=== PATIENT | female | born 1975 | race Caucasian/White ===

== ENCOUNTER 2017-02-13 09:30 | Emergency (ER) | payer OTHER ==
[~2017-02-13] VITALS: Ht 172.7 cm; Wt 95.7 kg
[~2017-02-13 09:30] MED LIST: CITA40TA12 PO; PEDICHW34 PO
[2017-02-13 09:37] VITALS: TEMP 36.8; Ht 172.7 cm; Wt 95.7 kg
[2017-02-13] MEDS ORDERED: CLON0.5T3 PO (10:06)
[2017-02-13] MEDS ORDERED: FEXO1TAB49 PO (10:06)
[2017-02-13] MEDS ORDERED: SODIUM CHLORIDE 0.9% 1000ML 1,000 ML IV STA (10:09)
[2017-02-13 10:32] LABS: BASO % 0.5 %; BASO ABS # 0.03 K/uL (0-0.2); COMPLETE YES; EOS % 5.6 %; IG% 0.2 %; LYMPH % 25.4 %; LYMPH ABS # 1.44 K/uL (1.2-3.4); MEAN CELL VOLUME 87.9 fL (80-100); MEAN CORPUSCULAR HEMOGLOBIN 30.8 pg (25-34); MEAN PLATELET VOLUME 9.3 fL (7.4-10.4); MONO % 9.7 %; NEUT % 58.6 %; PLATELET COUNT 224 K/uL (130-400); RED BLOOD COUNT 4.78 M/uL (4.2-5.4); WHITE BLOOD COUNT 5.67 K/uL (4.8-10.8)
[2017-02-13 10:51] LABS: BUN/CREATININE RATIO 14.2 (10-20); CREATININE 0.66 mg/dl (0.60-1.20); POTASSIUM 4.3 mmol/L (3.5-5.1)
--- NOTE | 2017-02-13 11:10 | DIAGNOSTIC IMAGING REPORT ---
SINUSES-MAXILLOFACIAL W/O HISTORY: 41 years Female congestion COMPARISON: Head CT 09/17/2010 TECHNIQUE: Multiple axial CT images of the paranasal sinuses and maxillofacial bones were obtained without contrast. Coronal and sagittal reformatted images were obtained from the axial data set and submitted for review. A dose lowering technique was used consistent with the principles of ALARA. FINDINGS: Mastoid air cells and middle ear cavities are clear. There is mild to moderate mucosal thickening of the left maxillary sinus with mild disease within the right maxillary and bilateral sphenoid sinuses. There is moderate mucosal thickening throughout the ethmoid air cells bilaterally. Frontal sinuses are generally clear. Nasopharynx is patent. Large left and small right conchal bullosa noted. No evidence of ostiomeatal complex occlusion. The bilateral frontoethmoidal and sphenoethmoidal recesses are patent. No Nickie cell. Facial bones appear intact without acute fracture identified. Degenerative changes are present at C1-C2. No large. Vertebral cysts are seen. Soft tissues are within normal limits. Tonsilliths are seen in the left palatine tonsil the lesser extent on the right. Image intracranial structures are within normal limits. IMPRESSION: 1. Moderate left maxillary and ethmoid sinus disease without evidence of ostiomeatal occlusive pattern. No nasopharyngeal obstruction. 2. Left greater than right palatine Tonsilliths are seen without peritonsillar abscess or evidence of acute tonsillitis. 3. Bilateral she bullosa. The above report was generated using voice recognition software. It may contain grammatical, syntax or spelling errors. Electronically signed by: Jona Hearn M.D. 02/13/2017 11:09 AM Dictated Date/Time: 02/13/2017 11:02 AM
[2017-02-13] MEDS ORDERED: AMOX875T PO (11:31)
--- NOTE | 2017-02-13 11:32 | EMERGENCY ROOM VISIT NOTE ---
History Report prepared by Mandy: Brigette Fields Under the Supervision of: Dr. Tommy Prince D.O. First contact with patient: 10:02 Chief Complaint: DIZZY Stated Complaint: DIZZY Nursing Triage Summary: Pt states, "Yesterday, you know when you watch a video and everything streams, that's how it seems. It's like everything is filter. I don't lose time, it's just like there is a pause. The lights bother me. Yesterday I had bad pressure in my face, even my teeth hurt." History of Present Illness The patient is a 41 year old female who presents to the Emergency Room with complaints of persistent sinus pressure starting yesterday. She has a history of allergies. Her allergies seem worse recently. Yesterday, she was sneezing a lot more than usual. She reports sinus pressure in her face. She feels "run down ". She reports the light is hurting her eyes. She also reports a sensation that her "brain can't catch up". She describes it as pauses when watching a video. She experienced this yesterday and today at work and was told by her boss to go to the ED. She denies any nausea, cough, or headache. She has a history of panic attacks and migraines. The light sensitivity feels like a migraine without the headache. She notes that she has had more floaters in her eyes recently. Source of History: patient Onset: yesterday Position: other (sinus) Quality: pressure Timing: other (persistent) Associated Symptoms: + fatigue, No headache, No cough, No nausea Note: Pt reports sneezing, light sensitivity, brain pauses. Review of Systems See HPI for pertinent positives & negatives. A total of 10 systems reviewed and were otherwise negative. Past Medical & Surgical Medical Problems: (1) Depression Family History No pertinent family history Social History Smoking Status: Never Smoker Marital Status: Housing Status: lives with family Current/Historical Medications Scheduled Amoxicillin & Pot Clavulanate (Augmentin 875-125 mg), 875 MG PO BID Citalopram Hydrobromide (Celexa), 40 MG PO QPM Clonazepam (Klonopin), Unknown Dose PO QPM Fexofenadine Hcl (Kate Allergy), 180 MG PO DAILY Allergies Coded Allergies: NUTS (Verified Allergy, Severe, ANAPHYLAXIS, 02/13/17) Shellfish (Unverified Allergy, Severe, ANAPHYLAXIS, 02/13/17) Sulfa Antibiotics (Unverified Allergy, Intermediate, RASH, 02/13/17) Latex1 -Allergic Contact Dermititis (Verified Allergy, Mild, RASH, 02/13/17 ) ONLY AFFECTED WHEN SHE HERSELF WEARS LATEX POWDERED GLOVES. DOES NOT AVOID OTHER FORMS OF LATEX Codeine (Unverified Allergy, Unknown, RASH VOMITING, 02/13/17) Sulfa Drugs (Verified Allergy, Unknown, HIVES, 02/13/17) Physical Exam Vital Signs Date Time Temp Pulse Resp B/P (MAP) Pulse Ox O2 Delivery O2 Flow Rate FiO2 02/13/17 11:22 58 02/13/17 09:37 36.8 86 18 112/68 97 Room Air Physical Exam CONSTITUTIONAL/VITAL SIGNS: Reviewed / noted above. GENERAL: Non-toxic in appearance. INTEGUMENTARY: Warm, dry, and [place]. HEAD: Normocephalic. EYES: without scleral icterus or trauma. ENT/OROPHARYNX: Clear rhinorrhea and sniffling. LYMPHADENOPATHY/NECK: Is supple without lymphadenopathy or meningismus. RESPIRATORY: Lungs clear and equal. CARDIOVASCULAR: Regular rate and rhythm. GI/ABDOMEN: Soft and nontender. No organomegaly or pulsatile mass. No rebound or guarding. Normal bowel sounds. EXTREMITIES: Warm and well perfused. BACK: No CVA tenderness. NEUROLOGICAL: Intact without focal deficits. PSYCHIATRIC: normal affect. MUSCULOSKELETAL: Normally developed with good muscle tone. Medical Decision & Procedures ER Provider Diagnostic Interpretation: Radiology results as stated below per my review and radiologist interpretation: SINUSES-MAXILLOFACIAL W/O HISTORY: 41 years Female congestion COMPARISON: Head CT 09/17/2010 TECHNIQUE: Multiple axial CT images of the paranasal sinuses and maxillofacial bones were obtained without contrast. Coronal and sagittal reformatted images were obtained from the axial data set and submitted for review. A dose lowering technique was used consistent with the principles of ALARA. FINDINGS: Mastoid air cells and middle ear cavities are clear. There is mild to moderate mucosal thickening of the left maxillary sinus with mild disease within the right maxillary and bilateral sphenoid sinuses. There is moderate mucosal thickening throughout the ethmoid air cells bilaterally. Frontal sinuses are generally clear. Nasopharynx is patent. Large left and small right conchal bullosa noted. No evidence of ostiomeatal complex occlusion. The bilateral frontoethmoidal and sphenoethmoidal recesses are patent. No Nickie cell. Facial bones appear intact without acute fracture identified. Degenerative changes are present at C1-C2. No large. Vertebral cysts are seen. Soft tissues are within normal limits. Tonsilliths are seen in the left palatine tonsil the lesser extent on the right. Image intracranial structures are within normal limits. IMPRESSION: 1. Moderate left maxillary and ethmoid sinus disease without evidence of ostiomeatal occlusive pattern. No nasopharyngeal obstruction. 2. Left greater than right palatine Tonsilliths are seen without peritonsillar abscess or evidence of acute tonsillitis. 3. Bilateral she bullosa. The above report was generated using voice recognition software. It may contain grammatical, syntax or spelling errors. Electronically signed by: Jona Hearn M.D. 02/13/2017 11:09 AM Dictated Date/Time: 02/13/2017 11:02 AM Laboratory Results 02/13/17 10:20 Red Blood Count 4.78, Mean Corpuscular Volume 87.9, Mean Corpuscular Hemoglobin 30.8, Mean Corpuscular Hemoglobin Concent 35.0, Mean Platelet Volume 9.3, Neutrophils (%) (Auto) 58.6, Lymphocytes (%) (Auto) 25.4, Monocytes (%) (Auto) 9.7, Eosinophils (%) (Auto) 5.6, Basophils (%) (Auto) 0.5, Neutrophils # (Auto) 3.32, Lymphocytes # (Auto) 1.44, Monocytes # (Auto) 0.55, Eosinophils # (Auto) 0.32, Basophils # (Auto) 0.03 02/13/17 10:20 Test 02/13/17 10:20 White Blood Count 5.67 K/uL (4.8-10.8) Red Blood Count 4.78 M/uL (4.2-5.4) Hemoglobin 14.7 g/dL (12.0-16.0) Hematocrit 42.0 % (37-47) Mean Corpuscular Volume 87.9 fL (80-100) Mean Corpuscular Hemoglobin 30.8 pg (25-34) Mean Corpuscular Hemoglobin Concent 35.0 g/dl (32-36) Platelet Count 224 K/uL (130-400) Mean Platelet Volume 9.3 fL (7.4-10.4) Neutrophils (%) (Auto) 58.6 % Lymphocytes (%) (Auto) 25.4 % Monocytes (%) (Auto) 9.7 % Eosinophils (%) (Auto) 5.6 % Basophils (%) (Auto) 0.5 % Neutrophils # (Auto) 3.32 K/uL (1.4-6.5) Lymphocytes # (Auto) 1.44 K/uL (1.2-3.4) Monocytes # (Auto) 0.55 K/uL (0.11-0.59) Eosinophils # (Auto) 0.32 K/uL (0-0.5) Basophils # (Auto) 0.03 K/uL (0-0.2) RDW Standard Deviation 41.0 fL (36.4-46.3) RDW Coefficient of Variation 12.8 % (11.5-14.5) Immature Granulocyte % (Auto) 0.2 % Immature Granulocyte # (Auto) 0.01 K/uL (0.00-0.02) Anion Gap 3.0 mmol/L (3-11) Est Creatinine Clear Calc Drug Dose 132.9 ml/min Estimated GFR () 125.4 Estimated GFR (Non- 108.2 BUN/Creatinine Ratio 14.2 (10-20) Calcium Level 9.0 mg/dl (8.5-10.1) Laboratory results as stated above per my review. Medications Administered Medications (Trade) Dose Ordered Sig/Randall Route Start Time Stop Time Status Last Admin Dose Admin Sodium Chloride 1,000 ml @ 999 mls/hr Q1H1M STAT IV 02/13/17 10:09 02/13/17 11:09 DC 02/13/17 10:39 999 MLS/HR ED Course 1005: Previous medical records were reviewed. The patient was evaluated in room B2. A complete history and physical examination was performed. 1009: NSS 1000 ml @ 999 mls/hr IV. 1134: On reevaluation, the patient is resting comfortably. I discussed the results and findings with the patient. She verbalized agreement of the treatment plan. She was discharged home. 1145: Augmentin 875 mg PO. Medical Decision Differential includes acute coronary syndrome, myocardial infarction, CVA, TIA, anemia, infection, pneumonia, UTI, pyelonephritis, poor nutrition, dehydration, electrolyte disturbance,hypoglycemia. This is a 41-year-old female who presents to the ED with a chief complaint of having some seasonal allergies and congestion. She states that they seem to be worse than normal. She is also having some light sensitivity. She states that the symptoms are causing her to feel somewhat anxious. She was at work today and her employer told her to come in to get checked. She denies any headaches or neck stiffness. She feels a fullness in her face. She reports sneezing a lot yesterday. Her vital signs are normal. She is afebrile. Her exam was unremarkable. CT scan of the sinuses revealed maxillary and ethmoid sinusitis on the left. CBC and PRP are normal. The patient was started on Augmentin. She is felt to be stable for discharge and outpatient follow-up. She is using [id number] allergy medications as well. Medication Reconcilliation Current Medication List: was personally reviewed by me Blood Pressure Screening Patient's blood pressure: Normal blood pressure Blood pressure disposition: Did not require urgent referral Impression Primary Impression: Acute maxillary sinusitis Scribe Attestation The scribe's documentation has been prepared under my direction and personally reviewed by me in its entirety. I confirm that the note above accurately reflects all work, treatment, procedures, and medical decision making performed by me. Departure Information Dispostion Home / Self-Care Prescriptions Amoxicillin & Pot Clavulanate (Augmentin 875-125 mg) 1 Tab Tab 875 MG PO BID, #14 TAB Prov: Tommy Prince D.O. 02/13/17 Referrals Biju Reagan M.D. (PCP) Patient Instructions ED Sinusitis Abx Tx, My [facility] Additional Instructions Augmentin as prescribed. Follow-up with your doctor for further care and evaluation in 5-7 days. Return to the emergency department for worsening or new symptoms or any concerns. You have been examined and treated today on an emergency basis only. This is not a substitute for, or an effort to provide, complete comprehensive medical care. It is impossible to recognize and treat all injuries or illnesses in a single emergency department visit. It is therefore important that you follow up closely with your doctor. Call as soon as possible for an appointment.
[2017-02-13] MEDS ORDERED: AMOXICILLIN/CLAVULANATE TAB 875 MG TAB PO ONE (11:45)
[2017-02-13 11:58] VITALS: BP 123/65; PULSE 70; O2SAT 99
== END 2017-02-13 12:00 | disposition home or self-care (01) ==
LOC: C.EDB 09:30
DX: J01.00 Acute maxillary sinusitis, unspecified (principal); F32.9 Major depressive disorder, single episode, unspecified

== ENCOUNTER 2019-08-02 05:35 | Observation (INO) ==
--- NOTE | 2019-07-14 15:19 | PAT Medication Instructions ---
Medication Instructions Date of Service July 14, 2019 Home Medications clonazepam 0.5 mg PO HS PRN fexofenadine 180 mg tablet 180 mg PO QAM sertraline 100 mg tablet 100 mg PO HS DO NOT take the morning of surgery fexofenadine 180 mg tablet 180 mg PO QAM Take evening before surgery clonazepam 0.5 mg PO HS PRN (if needed) sertraline 100 mg tablet 100 mg PO HS Other Notes If you have any questions please call us at [phone] or [phone] or [phone] or [phone]
--- NOTE | 2019-07-15 12:44 | Anesthesiology Consultation ---
Date of Service July 15, 2019 Assessment & Plan (1) Encounter for pre-operative examination: - Awaiting review preop testing (labs). - Check test AM DOS - Claustrophobic: *patient anxious regarding O2 mask.* Reassurance given. Chart Review Chart Review: Patient NOT seen in Pre Admission Testing History Surgery Operation Date: 08/02/19 07:30 Proposed Procedures p Robotic Total Laparoscopic Hysterectomy - Renny Duval Jr, MD, FACOG s Cystoscopy, Mid Ureteral Sling, Possible Cystocele Repair - Bj Ravi MD Height/Weight Height: 5 ft 8 in Weight: 99 kg Allergies Allergy/AdvReac Type Severity Reaction Status Date / Time nut - unspecified Allergy Severe ANAPHYLAXIS Verified 07/15/19 11:09 shellfish derived Allergy Severe ANAPHYLAXIS Verified 07/15/19 11:09 Sulfa (Sulfonamide Allergy Intermediate RASH Verified 07/15/19 11:09 Antibiotics) latex Allergy Mild RASH Verified 07/15/19 11:09 codeine Allergy Unknown RASH Verified 07/15/19 11:09 VOMITING Medications Home Medications Medication Instructions Recorded Confirmed Last Taken clonazepam 0.5 mg PO HS PRN #0 tab 02/13/17 07/15/19 07/15/18 fexofenadine 180 mg tablet 180 mg PO QAM 05/27/19 07/15/19 Unknown sertraline 100 mg tablet 100 mg PO HS 05/27/19 07/15/19 Unknown Past Medical History Medical History Anxiety Depression History of migraine headaches Obese Exercise / Class Metabolic Activity II 4-5 Yardwork/Stairs/Walk up hill Past Family History Family History Grandmother (Maternal) Diabetes Mother , at 53 Breast cancer, Onset Age: 43 Grandfather (Maternal) Hypertension Past Surgical History Surgical History H/O arthroscopic knee surgery 1997 - left History of ectopic with D&C S/P wisdom tooth extraction Past Anesthesia History No Family Hx of Anesthesia Complications and Other *Patient reports acting "delirious" in recovery after D&C* History of PONV No Hx of PONV and No Hx of Motion Sickness Social History Smoking Status: Never smoker Do You Dip or Chew Tobacco: No Hx Alcohol Use: Yes Alcohol type: wine alcohol intake frequency: a few times a month Hx Substance Use: No substance use type: does not use Review of Systems Patient denies chest pain, shortness of breath, dyspnea on exertion, reflux, cough, wheezing, palpitations. Physical Exam Vital Signs VITALS BP 109/74 P 71 TEMP 97.8 SP02 96%RA RESP 18 PHYSICAL Full neck and c-spine range of motion. Full TMJ range of motion. TMD 4 finger breaths Mallampati Score 1 Dentition: intact, crown on molar Lungs: clear throughout to auscultation Cardiac: regular rate and rhythm, no murmurs noted Spine: normal Extremities: no edema
[2019-07-15 13:31] LABS: Basophils # (auto) 0.02 K/uL (0-0.2); Basophils % (auto) 0.3 %; Eosinophils # (auto) 0.35 K/uL (0-0.5); Eosinophils % (auto) 5.6 %; Hemoglobin 13.9 g/dL (12.0-16.0); Lymphocytes # (auto) 1.71 K/uL (1.2-3.4); Lymphocytes % (auto) 27.3 %; Mean Corpuscular Hemoglobin 29.9 pg (25-34); Mean Corpuscular Hgb Conc 33.9 g/dL (32-36); Mean Corpuscular Volume 88.2 fL (80-100); Mean Platelet Volume 9.1 fL (7.4-10.4); Monocytes # (auto) 0.44 K/uL (0.11-0.59); Neutrophils # (auto) 3.74 K/uL (1.4-6.5); Neutrophils % (auto) 59.8 %; Platelet Count 287 K/uL (130-400); RDW Coefficient of Variation 12.7 % (11.5-14.5); RDW Standard Deviation 40.9 fL (36.4-46.3); Red Blood Count 4.65 M/uL (4.2-5.4); White Blood Count 6.26 K/uL (4.8-10.8)
[2019-08-02] MEDS ORDERED: LACTATED RINGER'S 1,000 ML IV SCH ×2 (06:00→13:40)
[2019-08-02] MEDS ORDERED: LR 15ML/HR IV SCH (06:00)
[2019-08-02] MEDS ORDERED: CEFAZOLIN 3000MG 65 ML IV SCH (06:00)
[2019-08-02 06:46] LABS: Pregnancy Test, Serum Negative (Negative)
[2019-08-02] MEDS ORDERED: SCOPOLAMINE 1.5 MG TDSY ONE (06:55)
[2019-08-02] MEDS ORDERED: GLYCOPYRROLATE 0.2 MG/ML VIAL ONE (06:57)
[2019-08-02] MEDS ORDERED: DEXAMETHASONE SOD INJ 4 MG/ML VIAL ONE (06:57)
[2019-08-02] MEDS ORDERED: NEOSTIGMINE METHYLSULFATE 5 MG/5 ML SYR ONE (06:57)
[2019-08-02] MEDS ORDERED: MIDAZOLAM HCL 1 MG/ML 2ML VIAL ONE (06:57)
[2019-08-02] MEDS ORDERED: LIDOCAINE HCL 2% 2 ML VIAL/AMP(20MG/ML) INFIL ONE (06:57)
[2019-08-02] MEDS ORDERED: HYDROmorphone INJ 2 MG/ML SYR/VIAL ONE (06:57)
[2019-08-02] MEDS ORDERED: PROPOFOL IV EMULSION 10 MG/ML 20 ML VIAL IV ONE (06:57)
[2019-08-02] MEDS ORDERED: ONDANSETRON INJ 2 MG/ML 2 ML VIAL ONE (06:57)
[2019-08-02] MEDS ORDERED: fentaNYL citrate 100 MCG/2 ML VIAL ONE (06:57)
[2019-08-02] MEDS ORDERED: ROCURONIUM BROMIDE 10 MG/ML 5 ML VIAL ONE ×2 (06:57→09:10)
[2019-08-02] MEDS ORDERED: ATROPINE SULFATE 0.1 MG/ML 10ML SYR IV PRN (07:00)
[2019-08-02] MEDS ORDERED: MEPERIDINE HCL 25 MG/ML CARP IV PRN (07:00)
[2019-08-02] MEDS ORDERED: PHENYLEPHRINE 100MCG/ML 5ML SYR IV PRN (07:00)
[2019-08-02] MEDS ORDERED: ePHEDrine sulfate 50 MG/ML AMP IV PRN (07:00)
[2019-08-02] MEDS ORDERED: SCOPOLAMINE 1.5 MG TDSY TD ONE (07:00)
[2019-08-02] MEDS ORDERED: LABETALOL HCL IV 5 MG/ML 20ML IV PRN (07:00)
[2019-08-02] MEDS ORDERED: fentaNYL citrate 100 MCG/2 ML VIAL IV PRN (07:00)
[2019-08-02] MEDS ORDERED: ONDANSETRON INJ 2 MG/ML 2 ML VIAL IV PRN ×2 (07:00→13:07)
[2019-08-02] MEDS ORDERED: METHYLENE BLUE 0.5% 10 ML VIAL ONE (07:07)
[2019-08-02] MEDS ORDERED: BUPIVACAINE 0.5 % 5 MG/1 ML MPF 30ML VIAL ONE (07:07)
--- NOTE | 2019-08-02 07:07 | History & Physical Bridge Note ---
Date of Service August 02, 2019 History & Physical Bridge Note I have examined the patient, reviewed the History & Physical and in the interval since the performance of the History & Physical I have noted the following changes of clinical significance: no changes noted
[2019-08-02] MEDS ORDERED: BUPIVACAINE/EPINEPHRINE 0.5% MPF 1:200,000 10 ML VIAL ONE (08:25)
[2019-08-02] MEDS ORDERED: BACITRACIN INJ 50,000 UNIT VIAL ONE (08:25)
[2019-08-02] MEDS ORDERED: CLINDAMYCIN PHOS 2% VAG 7 APPLN/40 GM TUBE ONE (08:25)
--- NOTE | 2019-08-02 10:05 | Post Operative Brief Note ---
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 Operation Date: 08/02/19 07:15 <No data on this case meets the specified criteria> I identified the patient and participated in the time-out.: Yes Procedure Operation Date: 08/02/19 07:15 Actual Procedures p Robotic Total Laparoscopic Hysterectomy with salpingectomy, cystoscopy(Not Applicable) - Renny Duval Jr, MD, FACOG Surgeon Renny Duval Jr, MD, FACOG Truss Puller Helper Taran Estimated Blood Loss 100 Findings See Below (Multiparous uterus and normal appearing tubes/ovaries, suspected endometriosis of cul se dac involving uteral sacral ligaments, TLH with bilateral salpingectomy, postprocedure cystoscopy with bilatral ureteral jets) Specimens Specimen Description: Permanent Specimen: A: Uterus, cervix, bilateral fallopian tubes
[2019-08-02] MEDS ORDERED: ePHEDrine sulfate 50 MG/ML SYR ONE (10:31)
--- NOTE | 2019-08-02 10:59 | Operative Report ---
PG Post Operative Report Pre & Post Diagnosis Operation Date: 08/02/19 07:15 Pre-Op Diagnosis: Menorrhagia, Urinary stress Incontinence Post-Op Diagnosis: Menorrhagia, Urinary stress Incontinence I identified the patient and participated in the time-out.: Yes Procedure Operation Date: 08/02/19 07:15 Actual Procedures p Robotic Total Laparoscopic Hysterectomy with salpingectomy, cystoscopy(Not Applicable) - Renny Duval Jr, MD, FACOG s Cystoscopy; Mid-Uretheral / Pubovaginal Sling, Cystocele Repair(Not Applicable) - Bj Ravi MD Surgeon Bj Ravi MD Machine Long Goods Helper Taran BALTAZAR for sling Estimated Blood Loss 100 (100ml for hysterectomy and ml for bladder sling) Findings Consistent with Post-Op Diagnosis Specimens NA Description of Procedure Cystoscopy, midurethral sling. I attest to the content of the Intraoperative Record and any orders documented therein. Any exceptions are noted below.
[2019-08-02] MEDS ORDERED: ESMOLOL HCL INJ 10 MG/ML 10ML VIAL IV ONE (11:23)
--- NOTE | 2019-08-02 11:47 | Operative Report ---
DATE OF OPERATION: 08/02/2019 PREOPERATIVE DIAGNOSIS: Menorrhagia. POSTOPERATIVE DIAGNOSES: 1. Menorrhagia. 2. Probable posterior cul-de-sac endometriosis. PROCEDURE PERFORMED: 1. Total laparoscopic hysterectomy. 2. Bilateral salpingectomy. 3. Post-procedure cystoscopy. SURGEON: Renny Duval MD CLOTHING SUPERVISOR: Dr. Myriam Chirinos. ANESTHESIA: General. FINDINGS: Laparoscopic examination of the pelvis showed a multiparous uterus with normal appearing tubes and ovaries bilaterally. Adhesions of the sigmoid colon to the posterior surface of the uterus with vascular appearing implants consistent with endometriosis. Total laparoscopic hysterectomy with bilateral salpingectomy performed. Post-procedure cystoscopy showed bilateral ureteral jets consistent with ureteral patency. Procedure turned over to Dr. Bj Ravi from urology. PROCEDURE IN DETAIL: The patient was taken to the operating room and after general anesthesia, was placed in a dorsal lithotomy position and prepped and draped for a laparoscopic hysterectomy. Winston catheter was inserted into the bladder which remained there throughout the procedure. VCare uterine manipulator was inserted into the uterus and fastened to the cervix with 0 Vicryl suture. VCare locked into place. Small subumbilical incision was made and the Veress needle was introduced into the pelvic cavity, which was then insufflated with 3 liters of CO2. A 12 mm operative laparoscopic port was placed above the umbilicus. Pelvic organs were visualized and then under direct laparoscopic guidance, the operative reports were placed, one 8 mm port on the left, two 8 mm ports on the right and a 12 mm assistance port on the left. The robot was brought to the table and successfully docked. Pelvic organs were visualized with the description as above. Through arm #1, was placed bipolar cautery instrument through arm #2 the monopolar scissors and through arm #2 the Prograf. The surgeon left the operating table and went to the operating console. Pelvic organs and anatomy were again identified. Both ureters were seen crusting at the pelvic junction. The left fallopian tube was cauterized along the mesosalpinx and excised and sent for pathological evaluation. The left round ligament was then cauterized, opening the anterior leaf of the broad ligament. This was taken down over the level of the cervix. Uterine vessels were then skeletonized on the left hand side and cauterized in 3 contiguous rahman, but not cut. Dissection was then turned to the right fallopian tube and ovary. The right fallopian tube was isolated by cauterizing along the mesosalpinx, cut and removed from the field. Right round ligament was cauterized and cut open the anterior leaf of the broad ligament which was taken down to join the contralateral side. Dissection of the bladder below the level of the vaginal cervical junction. Uterine vessels were skeletonized on the right hand side and cauterized with the bipolar cautery scissors, these were then cut. The cardinal ligament was then cauterized and cut on the right hand side. Dissection was turned back to the left hand side. Uterine vessels were then cut and the cardinal ligament on the left hand side were cauterized and cut. Anterior colpotomy incision was made and then carried around posteriorly. The posterior cervix was dense and thickened consistent with endometriosis cutting down on to the VCare in a circumferential fashion, the cervix was from the vagina and delivered into the vaginal cavity. The bipolar cautery instrument and the monopolar scissors were removed. A ProGrasp instrument was placed through arm #1 and the elina needle driver helper through arm #2. The vaginal cuff was identified. Again, this was closed with 2-0 Vicryl V-Loc suture. The closure was done with 2 sutures starting at the angles on the left and right and brought to the midline doubling back. Suture was cut and removed from the field. Hemostasis was present. At this point, the Winston catheter was removed from the bladder and instilled with normal saline. The patient did not receive methylene blue secondary to her use of a serotonin release inhibitor. Both ureteral jets could be seen coursing into the bladder consistent with ureteral patency. No evidence of sutures into the bladder. The bladder was then drained. The cuff was inspected for hemostasis, which was present but Tisseel was applied to the vaginal cuff to ensure hemostasis. The CO2 was allowed to escape from the cavity. The robot was undocked and removed from the operative field. The laparoscopic ports were removed. The 12 mm ports fascial defects were closed with interrupted 0 Vicryl suture. The skin incisions were closed with interrupted 4-0 Monocryl sutures and all incisions were injected with 0.5% Marcaine solution. Hemostasis present. At this point, the procedure was passed off to Dr. Bj Ravi from urology for completion of a retropubic urethropexy. I attest to the content of the Intraoperative Record and any orders documented therein. Any exception s are noted below.
--- NOTE | 2019-08-02 12:10 | Anesthesiology Progress Note ---
Date of Service August 02, 2019 Anesthesia Post Procedure Vital Signs Vital Signs: Temp Pulse Pulse Resp BP BP Pulse Ox 08/02/19 11:50 37.0 C 88 13 114/74 94 08/02/19 11:40 88 14 109/75 94 08/02/19 11:30 101 H 15 118/73 94 08/02/19 11:20 106 H 14 119/78 94 08/02/19 11:12 37.1 C 112 H 21 123/78 96 08/02/19 06:02 36.8 C 84 16 125/79 94 Pain Intensity Bilateral Abdomen: Pain Intensity: 2 Transfer of Care Handoff Completed per policy Notes Mental Status: alert / awake / arousable Patient Amnestic to Procedure: Yes Nausea / Vomiting: adequately controlled Pain: adequately controlled Airway Patency, RR, SpO2: stable & adequate BP & HR: stable & adequate Hydration State: stable & adequate Anesthetic Complications: no major complications apparent and Pt Satisfied with anesthetic care
[2019-08-02] MEDS ORDERED: ACETAMINOPHEN 325 MG TAB PO PRN (13:07)
[2019-08-02] MEDS ORDERED: KETOROLAC 30 MG/ML VIAL IV PRN (13:07)
[2019-08-02] MEDS ORDERED: PROMETHAZINE HCL 12.5 MG in SODIUM CHLORIDE 0.9% 50 ML IV PRN (13:07)
[2019-08-02] MEDS ORDERED: OXYCODONE/ACETAMINOPHEN 5mg/325mg TAB PO PRN (13:07)
[2019-08-02] MEDS: IBUPROFEN 600 MG TAB PO PRN ×3 (13:37→21:21)
[2019-08-02] MEDS: OXYCODONE/ACETAMINOPHEN 5mg/325mg TAB PO PRN ×3 (14:29→21:21)
--- NOTE | 2019-08-02 14:45 | Operative Report ---
DATE OF OPERATION: 08/02/2019 PREOPERATIVE DIAGNOSIS: Stress urinary incontinence. POSTOPERATIVE DIAGNOSIS: Stress urinary incontinence. PROCEDURE: Cystoscopy, mid urethral sling placement, transobturator approach. SURGEON: Bj Ravi MD. CALL CENTER ASSOCIATE: DELANEY Ivey. Auto Tune Up Mechanic is present throughout the case for retraction, suction, division of the suture ligature material, passage of instruments, patient positioning and general patient safety. ESTIMATED BLOOD LOSS: 10 mL. DRAINS LEFT IN PLACE: None. FINDINGS: Excellent position of a mid urethral sling in the transobturator approach with good tensioning, normal cystoscopy without evidence of bladder injury or vaginal forniceal perforation. BRIEF HISTORY: Ms. Valencia is a pleasant 43-year-old female who I have seen for a complaint of bothersome urinary incontinence. Office cystoscopy has demonstrated normal intravesical anatomy with stress urinary incontinence and urethral hypermobility. She is pending laparoscopic hysterectomy by Dr. Duval today and has requested a simultaneous placement of a mid urethral sling if possible. Please see outpatient H and P for further details. She has been covered with intravenous Ancef per the primary service and SCDs had been used for DVT prophylaxis. The robotic laparoscopic hysterectomy portion of the case was taken place before a urologic intervention. DESCRIPTION OF PROCEDURE: The patient was properly identified and appropriate consent was identified in the chart. The patient was placed in a lithotomy position and mobile stirrups. radio time salesperson-out procedure was repeated. A weighted speculum was placed within the vaginal canal and the patient was placed in some mild Trendelenburg. Bladder was drained using an 18-Citizen Of [place] silicone catheter with 10 mL of sterile water in the balloon and then clamped using a Nena clamp. An Allis clamp was placed on the level of the meatus and anterior vaginal mucosa was anesthetized using local with epinephrine. An incision was made vertically using a 15 blade and using Metzenbaum scissors and peanuts, this was dissected out to the pelvic sidewall on both sides sufficiently to allow for easy passage of the surgeon's finger against the lateral pelvic floor musculature. Incisions were made on the superior aspect of the obturator fossa at the same level as the clitoris on both sides after induction of local anesthesia at the level of the skin. Bladder was again drained prior to trocar passage and a transobturator trocar kit was used to pass first the left-sided trocar from the level of the skin through the obturator fossa onto the surgeon's finger. This was delivered from the incision and the apex of the vaginal canal was inspected to ensure lack of injury. This demonstrated no perforation. Cystoscopy was performed using a 70-degree lens and a well-distended bladder demonstrating a normal ureteral orifice with efflux of clear yellow urine with no intravesical injuries, tumors, papillary lesions or abnormalities. The sling material, which had been soaking in antibiotic solution, was engaged into the trocar and passed out through the obturator incision where it was grasped using a hemostat. Procedure was repeated on the right hand side after draining the bladder with a Winston catheter and again cystoscopy was repeated. A good position of the trocar without evidence of vaginal perforation or bladder injury was appreciated with a second normal cystoscopy. Bladder was again drained and a sling material was passed. This was appropriately tensioned in a tension-free suburethral fashion with the Burnette scissors easily able to pass between the sling and the urethra, but good apposition next to the urethra. It was divided at the level of the skin and tensioning sutures and devices were removed. Tips of the sling were buried on both sides and the obturator incisions were closed using Dermabond dressing. The vaginal incision was closed using a running 2-[address] needle with care, great care being taken to avoid any entrapment of the sling. Bladder was drained one final time and the urethral catheter was removed. A vaginal packing was placed to be removed in approximately 2 hours' time. Anesthesia was reversed. The patient was transferred to the recovery room in stable condition. FOLLOWUP CARE: The patient should be stable for discharge home per the gynecology plan. Outpatient appointments for followup are in place. Analgesia and other postoperative orders per DENTIST service. Findings were reviewed with the patient and her postoperatively. She may contact our service with any voiding issues or concerns after discharge. I attest to the content of the Intraoperative Record and any orders documented therein. Any exception s are noted below.
[2019-08-02] MEDS: CHECK SCOPOLAMINE PATCH PLACEMENT SCH (16:00)
--- NOTE | 2019-08-02 16:16 | Gynecologic Progress Note ---
Date of Service August 02, 2019 Assessment & Plan (1) Menorrhagia with regular cycle: - doing well - ambulating, but painful - pt requesting for d/c in AM - routine post-op care Subjective able to urinate, abdominal pain with ambulation, better with percocet Physical Exam Constitutional: WD/WN, vitals as above Gastrointestinal (Abdomen): dressings dry and intact Results & Data Vital Signs (Past 12 Hours) Vital Signs Temp Pulse Pulse Pulse Resp BP BP 08/02/19 15:05 99.0 F 91 H 16 108/67 08/02/19 14:00 97.5 F L 94 H 18 106/61 08/02/19 13:05 97.9 F 95 H 18 104/56 L 08/02/19 12:35 98.1 F 90 18 113/63 08/02/19 12:05 98.1 F 89 18 110/66 08/02/19 11:50 98.6 F 88 13 114/74 08/02/19 11:40 88 14 109/75 08/02/19 11:30 101 H 15 118/73 08/02/19 11:20 106 H 14 119/78 08/02/19 11:12 98.8 F 112 H 21 123/78 08/02/19 06:02 98.2 F 84 16 125/79 Pulse Ox 08/02/19 15:05 92 08/02/19 14:00 96 08/02/19 13:05 97 08/02/19 12:35 93 08/02/19 12:05 96 08/02/19 11:50 94 08/02/19 11:40 94 08/02/19 11:30 94 08/02/19 11:20 94 08/02/19 11:12 96 08/02/19 06:02 94 PG Care Time/CCT Total # of Minutes Spent Total Time Spent with Patient: Total time spent is greater than 50% in coordination of care (as documented) at patient's floor/unit and/or counseling patient:
[2019-08-02] MEDS ORDERED: SERTRALINE HCL 100 MG TABLET PO SCH (21:00)
[2019-08-03] MEDS: OXYCODONE/ACETAMINOPHEN 5mg/325mg TAB PO PRN ×2 (02:10→08:48)
[2019-08-03] MEDS: IBUPROFEN 600 MG TAB PO PRN ×2 (02:10→06:09)
[2019-08-03] MEDS: CHECK SCOPOLAMINE PATCH PLACEMENT SCH ×2 (02:11→07:21)
[2019-08-03 06:12] LABS: Basophils # (auto) 0.01 K/uL (0-0.2); Basophils % (auto) 0.1 %; Eosinophils # (auto) 0.12 K/uL (0-0.5); Eosinophils % (auto) 1.6 %; Hematocrit (blood only) 34.6 % (37-47); Hemoglobin 11.8 g/dL (12.0-16.0); Immature Granulocytes # (auto) 0.01 K/uL (0.00-0.02); Immature Granulocytes % (auto) 0.1 %; Lymphocytes # (auto) 1.75 K/uL (1.2-3.4); Lymphocytes % (auto) 22.8 %; Mean Corpuscular Hgb Conc 34.1 g/dL (32-36); Monocytes # (auto) 0.67 K/uL (0.11-0.59); Monocytes % (auto) 8.7 %; Neutrophils # (auto) 5.13 K/uL (1.4-6.5); Neutrophils % (auto) 66.7 %; Platelet Count 215 K/uL (130-400); RDW Coefficient of Variation 12.9 % (11.5-14.5); RDW Standard Deviation 41.7 fL (36.4-46.3); Red Blood Count 3.93 M/uL (4.2-5.4); White Blood Count 7.69 K/uL (4.8-10.8)
--- NOTE | 2019-08-03 07:48 | Gynecologic Progress Note ---
Date of Service August 03, 2019 Assessment & Plan (1) Menorrhagia with regular cycle: -Patient tolerating a regular diet and p.o. medication -Desires discharge -We will give some p.o. Zofran if needed -Discharge instructions given -All questions answered of the patient -Follow-up in 2 weeks for postoperative check Subjective Tolerating a regular diet, pain controlled but some nausea with medication, feels better with the Zofran, able to urinate Physical Exam Constitutional: WD/WN, vitals as above Cardiovascular: Extremities: no calf tenderness Gastrointestinal (Abdomen): Inspection/Auscultation: + abdominal surgical incision (Dressings dry and intact) Results & Data Vital Signs (Past 12 Hours) Vital Signs Temp Pulse Resp BP Pulse Ox 08/03/19 06:07 98.6 F 76 14 103/66 97 08/03/19 03:30 99.0 F 79 14 86/48 L 98 08/02/19 23:50 99.0 F 82 16 100/55 L 97 08/02/19 20:30 99.3 F 76 20 111/58 L 96 PG Care Time/CCT Total # of Minutes Spent Total Time Spent with Patient: Total time spent is greater than 50% in coordination of care (as documented) at patient's floor/unit and/or counseling patient:
--- NOTE | 2019-08-03 07:52 | Discharge Summary ---
Date of Service August 03, 2019 Admission HPI Per Admitting Provider The patient is a 43-year-old 2 para 1 AB1, scheduled for a total laparoscopic hysterectomy with bilateral salpingectomy for menorrhagia with regular menstrual cycle. The patient's menstrual cycles are regular and predictable. When the bleeding does occur she will need to change her protection every 1-2 hours. The patient had an ultrasound in office SIS which were unremarkable. Attempted endometrial biopsy were unsuccessful secondary to an inability to cannulize the uterus. The patient had an attempt at placement of a progesterone IUD under direct ultrasound guidance. This was also unsuccessful. Treatment options were discussed and the patient has been admitted for the above-listed procedures. The patient also suffers from concomitant stress urinary incontinence. The patient was evaluated by Urology who feel that the patient is a candidate for a suburethral sling. This procedure will be done at the time of the patient's hysterectomy. Admission Exam (Per Admitting) Constitutional As per preoperative note July 15 Discharge Data Procedures Performed Operation Date: 08/02/19 07:15 Actual Procedures p Robotic Total Laparoscopic Hysterectomy with salpingectomy,(Not Applicable) - Renny Duval Jr, MD, [facility] s Cystoscopy; Mid-Uretheral / Pubovaginal Sling, with Transobturator approach(Not Applicable) - Bj Ravi MD s Cystoscopy - Renny Duval Jr, MD, [facility] Course (1) Menorrhagia with regular cycle: The patient was taken to the operating room where she underwent a total laparoscopic hysterectomy with bilateral salpingectomy. Operative findings showed a large multiparous appearing uterus with adhesive disease in the posterior cul-de-sac consistent with probable endometriosis. The patient also had a suburethral sling performed by urology. The patient had some postoperative nausea and pain and requested stay until the morning of postoperative day #1. By the first postoperative day she was ambulating without difficulty and tolerating p.o. pain medication. H&H was stable. Patient was given the routine postoperative discharge instructions and the prescriptions as listed on the discharge instruction sheet. She will follow-up in the office in 2 weeks time for a postoperative check, but as always she has been instructed to call with any questions problems or difficulties.
[2019-08-03] MEDS ORDERED: FEXOFENADINE HCL 180 MG TAB PO SCH (09:00)
--- NOTE | 2019-08-03 11:06 | Anesthesiology Progress Note ---
Date of Service August 03, 2019 Anesthesia Post Procedure Vital Signs Vital Signs: Temp Pulse Pulse Resp BP Pulse Ox 08/03/19 08:55 37 C 67 16 95/58 L 97 08/03/19 07:20 37 C 67 16 95/58 L 97 08/03/19 06:07 37 C 76 14 103/66 97 08/03/19 03:30 37.2 C 79 14 86/48 L 98 08/02/19 23:50 37.2 C 82 16 100/55 L 97 08/02/19 20:30 37.4 C 76 20 111/58 L 96 08/02/19 15:05 37.2 C 91 H 16 108/67 92 08/02/19 14:00 36.4 C L 94 H 18 106/61 96 08/02/19 13:05 36.6 C 95 H 18 104/56 L 97 08/02/19 12:35 36.7 C 90 18 113/63 93 08/02/19 12:05 36.7 C 89 18 110/66 96 08/02/19 11:50 37.0 C 88 13 114/74 94 08/02/19 11:40 88 14 109/75 94 08/02/19 11:30 101 H 15 118/73 94 08/02/19 11:20 106 H 14 119/78 94 08/02/19 11:12 37.1 C 112 H 21 123/78 96 Pain Intensity Bilateral Abdomen: Pain Intensity: 3 Other: Pain Intensity: 0 Notes Mental Status: alert / awake / arousable and participated in evaluation Patient Amnestic to Procedure: Yes Nausea / Vomiting: adequately controlled Pain: adequately controlled Airway Patency, RR, SpO2: stable & adequate BP & HR: stable & adequate Hydration State: stable & adequate Anesthetic Complications: no major complications apparent
== END 2019-08-03 09:30 | disposition home or self-care (01) ==
LOC: 4N 05:35 → ASU 05:35